=== PATIENT | male | born 1975 | race Caucasian/White ===

== ENCOUNTER 2020-11-16 08:05 | Emergency (ER) | payer OTHER, SELFPAY ==
--- NOTE | ~2020-11-16 | XR_ITS ---
EXAMINATION: XR foot LT min 3V DATE: 11/16/2020 08:42 INDICATION: Lateral left foot pain. TECHNIQUE: 4 views of left foot were obtained. COMPARISON: None. FINDINGS: Bone alignment is normal. No fracture. There is mild osteoarthritis of first metatarsophala ngeal joint. IMPRESSION: 1. Mild osteoarthritis of first metatarsophalangeal joint. Reviewed, dictated and finalized at location A.
--- NOTE | 2020-11-16 08:18 | ED.GENADULT ---
HPI - General Adult General Chief complaint: Extremity Injury, Lower Stated complaint: left foot injury Time Seen by Provider: 11/16/20 08:18 Source: patient Mode of arrival: ambulatory Limitations: no limitations History of Present Illness HPI narrative: 45-year-old male patient presents to the [facility] with complaints of left foot pain that started yesterday. Patient states [place] the [place] and was walking around and states he started having a little bit of pain to the sole of the foot after the zoo. Patient states he did work out last night. Patient thought it would be better today however woke up today and still complaining of a little bit of pain to the left foot on the lateral sole. Patient denies taking Tylenol or ibuprofen. Denies any numbness or tingling. Denies any specific trauma that he can remember. Related Data Home Medications Medication Instructions Recorded Confirmed amlodipine 5 mg PO DAILY 11/16/20 11/16/20 ergocalciferol (vitamin D2) 1,250 mcg PO WEEKLY 11/16/20 11/16/20 lisinopril-hydrochlorothiazide 1 tablet PO DAILY 11/16/20 11/16/20 Allergies Allergy/AdvReac Type Severity Reaction Status Date / Time No Known Allergies Allergy Mild Unverified 11/16/20 08:36 Review of Systems Review of Systems: Narrative: CONSTITUTIONAL: Denies fever, chills, or sweats. EYES: Denies visual changes, redness, or discharge. ENT: Denies rhinorrhea, congestion, sore throat, or otalgia. CARDIOVASCULAR: Denies chest pain, palpitations, or edema. RESPIRATORY: Denies cough or dyspnea. GASTROINTESTINAL: Denies abdominal pain, nausea, vomiting, or diarrhea. GENITOURINARY: Denies dysuria or hematuria. SKIN: Denies rash or itching. MUSCULOSKELETAL: Denies back pain, joint pain, or myalgia. Positive left foot pain NEUROLOGIC: Denies headache, numbness, or weakness. PSYCHIATRIC: Denies anxiety or depression. PMFSH Past Medical History Medical History (Updated 11/16/20 @ 08:57 by WELLINGTON Churchill) Dislocation of right shoulder joint Hypertension Exam Narrative: Exam Narrative: GENERAL: Well-appearing, well-nourished, and in no acute distress. HEAD: Normocephalic, atraumatic. EYES: PERRLA and EOMI. ENT: Nares clear, no rhinorrhea or epistaxis. Mucous membranes moist. NECK: Supple. No lymphadenopathy CHEST: Clear to auscultation. No respiratory distress. HEART: Regular rate and rhythm. No murmur heard. Normal peripheral pulses. ABDOMEN: Soft, nontender, nondistended, normal active bowel sounds. EXTREMITIES: Patient able to bear weight and ambulate with pain to the lateral side of the left foot. No surface trauma, ecchymosis, erythema, lesions, ulcers or break in skin integrity. The L foot is without obvious asymmetry or deformity when compared to the R foot. No bony step-off, nontender to palpation over the toes, midfoot or hindfoot patient does have some tenderness along the lateral side of the left foot under the fifth toe. Normal plantar/dorsiflexion, inversion/eversion. Distal motor and neurovascular status are intact SKIN: Warm, dry, no rash. NEURO: No focal deficits. Alert and oriented x3. Course Reevaluation(s) Reevaluation #1: Reevaluated patient notified him that the x-ray is negative for any acute fractures or stress fractures. Discussed with patient that we will go ahead and wrap his foot with an Mark wrap for support. Discussed with patient he can take Tylenol and ibuprofen as needed for pain. Patient verbalized understanding denies any other questions or concerns at this time. Date: 11/16/20 Time: 08:58 Vital Signs Vital signs: Vital Signs Temperature 36.6 C 11/16/20 08:23 Pulse Rate 70 11/16/20 08:23 Respiratory Rate 18 11/16/20 08:23 Blood Pressure 127/66 11/16/20 08:23 Pulse Oximetry 98 11/16/20 08:23 Temperature 36.6 C 11/16/20 08:36 Pulse Rate 70 11/16/20 08:36 Respiratory Rate 18 11/16/20 08:36 Blood Pressure 127/66 11/16/20 08:36 Pulse Oximetr
[2020-11-16 08:23] VITALS: BP 127/66; PULSE 70; RESP 18; TEMP 36.6; O2SAT 98
--- NOTE | 2020-11-16 08:29 | PC.NURSE ---
PT DECLINED ICE FOR COMFORT
[2020-11-16 08:36] VITALS: BP 127/66; PULSE 70; RESP 18; TEMP 36.6; O2SAT 98
--- NOTE | 2020-11-16 08:48 | PC.NURSE ---
PT DECLINED WHEELCHAIR TO RADIOLOGY
== END 2020-11-16 09:00 | disposition home or self-care (01) ==
PROVIDERS: Emergency Provider Nurse Practitioner Family; PCP Family Medicine
DX: M79.672 Pain in left foot (principal); I10 Essential (primary) hypertension
CPT/HCPCS: 73630; 99203; G0463

== ENCOUNTER 2021-03-25 13:19 | Emergency (ER) | payer OTHER, SELFPAY | END 2021-03-25 13:33 | disposition left against medical advice (07) | LOC: EXPBETH 13:24 | PROVIDERS: Emergency Provider Nurse Practitioner; PCP Family Medicine | DX: Z53.21 Procedure and treatment not carried out due to patient leaving prior to being seen by health care provider (principal) | CPT/HCPCS: 99199 ==

== ENCOUNTER 2022-04-12 19:31 | Emergency (ER) | payer OTHER, SELFPAY ==
[2022-04-12 19:36] VITALS: BP 127/75; PULSE 72; RESP 16; TEMP 36.2; O2SAT 99
--- NOTE | 2022-04-12 19:36 | ED.LOWEXIN ---
HPI - Extremity Injury (Lower) General Chief Complaint: Extremity Injury, Lower Stated Complaint: Right foot Gout Time Seen by Provider: 04/12/22 19:36 Source: patient, family and RN notes reviewed History of Present Illness HPI Narrative: Patient is a 46-year-old male who presents the urgent care with his spouse with complaints of gout to the right great toe. Patient states that he has a history of gout and it started yesterday morning. Patient states he took a dose of Aleve which tends to help but did not help with this flare. Patient states it is gotten much worse with pain and swelling. No other acute complaints. No acute distress noted. Patient read a plan of care. Some parts of this dictation were generated by voice recognition software and may contain typographical and/or grammatical inaccuracies. Related Data Home Medications Medication Instructions Recorded Confirmed ergocalciferol (vitamin D2) 1,250 1,250 mcg PO WEEKLY 11/16/20 04/12/22 mcg (50,000 unit) capsule lisinopril 20 1 tablet PO DAILY 11/16/20 04/12/22 mg-hydrochlorothiazide 25 mg tablet Allergies Allergy/AdvReac Type Severity Reaction Status Date / Time No Known Allergies Allergy Mild Verified 04/12/22 19:39 Review of Systems Review of Systems: CONSTITUTIONAL: Denies fever, chills, or sweats. EYES: Denies visual changes, redness, or discharge. ENT: Denies rhinorrhea, congestion, sore throat, or otalgia. CARDIOVASCULAR: Denies chest pain, palpitations, or edema. RESPIRATORY: Denies cough or dyspnea. GASTROINTESTINAL: Denies abdominal pain, nausea, vomiting, or diarrhea. GENITOURINARY: Denies dysuria or hematuria. SKIN: Denies rash or itching. MUSCULOSKELETAL: Reports of pain and swelling to the right foot, history of gout NEUROLOGIC: Denies headache, numbness, or weakness. All other systems reviewed are negative, except as documented in HPI. [facility] Past Medical History Medical History (Updated 04/12/22 @ 19:40 by WELLINGTON Gonzales) Dislocation of right shoulder joint Hypertension Comments At the time of my signature, I reviewed and agree with the nursing past medical, surgical, social, and family history. There is no relevant family history pertinent to the patient complaint. Exam Narrative: GENERAL: This is a well-nourished, well-developed patient, in no apparent distress. HEAD: normocephalic, atraumatic. EYES: PERRL. Sclera clear/white. Vision is grossly intact. EARS: External ears normal NOSE: External nose normal with no obvious nasal discharge, nares without redness, no rhinorrhea. THROAT: Mucous membranes moist NECK: Neck supple CARDIOVASCULAR: Regular rate and rhythm without murmurs, gallops, or rubs. SKIN: warm, intact with no suspicious lesions or rash, good texture and turgor. NEURO: awake, alert, and oriented to person, place and time. There were no obvious focal neurologic abnormalities. EXTREMITIES: Redness, tenderness and swelling to the MCP of the right great toe. Positive strong right pedal pulse with capillary refill less than 2 seconds. Range of motion of right lower extremity within normal limits. Course Course Level of Care: Express Care Visit Vital Signs Vital signs: Vital Signs Temperature 97.1 F L 04/12/22 19:36 Pulse Rate 72 04/12/22 19:36 Respiratory Rate 16 04/12/22 19:36 Blood Pressure 127/75 04/12/22 19:36 Pulse Oximetry 99 04/12/22 19:36 Oxygen Delivery Room Air 04/12/22 19:36 Temperature 97.1 F L 04/12/22 19:40 Pulse Rate 72 04/12/22 19:40 Respiratory Rate 16 04/12/22 19:40 Blood Pressure 127/75 04/12/22 19:40 Pulse Oximetry 99 04/12/22 19:40 Oxygen Delivery Room Air 04/12/22 19:40 Reviewed MDM - Extremity Injury (Lower) MDM Narrative Medical decision making narrative: Advised the patient to complete the oral steroid regimen as prescribed. Be sure to eat and drink with the medication. Use Tylenol/ibuprofen as needed for pain. Follow an
[2022-04-12 19:40] VITALS: BP 127/75; PULSE 72; RESP 16; TEMP 36.2; O2SAT 99
== END 2022-04-12 19:45 | disposition home or self-care (01) ==
PROVIDERS: Emergency Provider Nurse Practitioner Family; PCP Family Medicine
DX: M10.9 Gout, unspecified (principal); I10 Essential (primary) hypertension
CPT/HCPCS: 99213; G0463